=== PATIENT | male | born 1940 | race Caucasian/White ===

== ENCOUNTER 2016-10-15 13:29 | Observation (INO) | payer MEDICARE, BC ==
[~2016-10-15] VITALS: Ht 177.8 cm; Wt 97.0 kg
[2016-10-15] VITALS (7 sets, daily range): BP systolic 120–154; BP diastolic 60–66; PULSE 50–59; RESP 16–20; TEMP 98.1–98.8; O2SAT 95–100
[~2016-10-15 13:29] MED LIST: ASPI1TAB69 PO; ATOR40TA16 PO; CARV3.12 PO; CENTTAB PO; CITA40TA4 PO; CLOP75TA PO; LISI-519 PO; PRIL20TA2
[2016-10-15] MEDS ORDERED: SODIUM CHLORIDE 0.9% FLUSH 5 ML FLUSH IVF PRN (14:30)
--- NOTE | 2016-10-15 15:00 | RADRPT ---
EXAM DATE/TIME: 10/15/2016 14:41 [facility] COMPARISON: CHEST SINGLE AP, August 13, 2016, 16:45. INDICATIONS: Shortness of breath. MEDICAL HISTORY: None. SURGICAL HISTORY: Pacemaker. ENCOUNTER: Initial ACUITY: 1 day PAIN SCORE: 0/10 LOCATION: Bilateral chest FINDINGS: Pacemaker implanted in the left chest. Heart is not enlarged. Pulmonary vascularity is normal. The re is no alveolar consolidation, pleural effusion, or pneumothorax. CONCLUSION: Compensated cardiomegaly otherwise negative. Dilip Noriega MD FACR on October 15, 2016 at 14:53 Board Certified Radiologist. This report was verified electronically.
[2016-10-15 15:07] LABS: AUTOMATED NEUTROPHIL # 4.3 TH/MM3 (1.8-7.7); BASOPHIL # 0.1 TH/MM3 (0-0.2); BASOPHIL % 0.8 % (0.0-2.0); EOSINOPHIL # 0.4 TH/MM3 (0-0.4); EOSINOPHIL % 5.1 % (0.0-4.0); HEMATOCRIT 35.8 % (39.0-51.0); HEMO FLAGS DIFF FINAL; LYMPH % 28.4 % (9.0-44.0); LYMPHOCYTE # 2.2 TH/MM3 (1.0-4.8); MEAN CELL VOLUME 92.4 FL (80.0-100.0); MEAN CORPUSCULAR HGB CONC 33.5 % (32.0-36.0); MONO % 10.8 % (0.0-8.0); NEUT % 54.9 % (16.0-70.0); PLATELET COUNT 187 TH/MM3 (150-450); RED BLOOD COUNT 3.87 MIL/MM3 (4.50-5.90); RED CELL DISTRIBUTION WIDTH 13.4 % (11.6-17.2); WHITE BLOOD COUNT 7.9 TH/MM3 (4.0-11.0)
[2016-10-15 15:19] LABS: APTT (PATIENT) 24.4 SEC (24.3-30.1); PROTHROMBIN TIME - PATIENT 10.7 SEC (9.8-11.6)
[2016-10-15 15:35] LABS: ALT (GPT) 24 U/L (12-78); ANION GAP 4 MEQ/L (5-15); AST (GOT) 18 U/L (15-37); BICARBONATE 29.2 MEQ/L (21.0-32.0); BLOOD UREA NITROGEN 16 MG/DL (7-18); CHLORIDE 106 MEQ/L (98-107); GLOMERULAR FILTRATION RATE 71 ML/MIN (>89); MAGNESIUM 2.2 MG/DL (1.5-2.5); POTASSIUM 4.4 MEQ/L (3.5-5.1); SODIUM (NA) 139 MEQ/L (136-145)
[2016-10-15 15:38] LABS: ALKALINE PHOSPHATASE 52 U/L (45-117); TOTAL BILIRUBIN ADULT 0.5 MG/DL (0.2-1.0)
[2016-10-15 15:39] LABS: CREATINE KINASE 90 U/L (39-308)
--- NOTE | 2016-10-15 17:10 | PD ---
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 He had a defibrillator placed member and was cleared to return to regular activity today. He was working in the yard when he started to feel lightheaded and short of breath and he felt his defibrillator fire. Since then he has had no symptoms. He denies any chest pain or shortness of breath currently. He does not feel any palpitations or chest pain. PFSH Past Medical History Hx Anticoagulant Therapy: Yes (PLAVIX) Arthritis: Yes (L hand) Asthma: No Autoimmune Disease: No Blood Disorders: No Depression: Yes Heart Rhythm Problems: Yes (LOW EJECTION FRACTION) Cancer: No Cardiac Catheterization: Yes Cardiovascular Problems: Yes (3 CT) High Cholesterol: No Chemotherapy: No Chest Pain: Yes (NOT TODAY) Congestive Heart Failure: Yes COPD: No Cerebrovascular Accident: No Coronary Artery Disease: Yes Diabetes: No Diminished Hearing: No Endocrine: No GERD: Yes (TAKES PRILOSEC) Genitourinary: No Headaches: Yes Hiatal Hernia: No Hypertension: Yes Immune Disorder: No Kidney Stones: Yes Musculoskeletal: No Neurologic: No Psychiatric: No Reproductive: No Respiratory: No Migraines: No Myocardial Infarction: Yes (X 3) Radiation Therapy: No Renal Failure: No Seizures: No Sickle Cell Disease: No Sleep Apnea: No Thyroid Disease: No Ulcer: No Tetanus Vaccination: < 5 Years Influenza Vaccination: Yes Past Surgical History Abdominal Surgery: Yes (RIGHT INGUINAL HERNIA REPAIR ) AICD: Yes Arteriovenous Shunt: No Cardiac Surgery: Yes (DEFIBULATOR/PACERPLACED) Coronary Artery Bypass Graft: Yes Coronary Stent: Yes (3 STENTS) Ear Surgery: No Endocrine Surgery: No Eye Surgery: No Genitourinary Surgery: No Gynecologic Surgery: No Insulin Pump: No Joint Replacement: No Oral Surgery: Yes (UPPER TEETH REMOVED) Pacemaker: Yes Thoracic Surgery: No Other Surgery: Yes (hernia) Social History Alcohol Use: No Tobacco Use: No (QUIT 40 YEARS AGO) Substance Use: No Allergies-Medications (Allergen,Severity, Reaction): Coded Allergies: Sulfa (Verified Allergy, Severe, Hives, 04/20/14) Reported Meds & Prescriptions Reported Meds & Active Scripts Active Reported B-12 (Cyanocobalamin) 1,000 Mcg Cap 1,000 Mcg PO DAILY Prilosec (Omeprazole Magnesium) 20 Mg Tab Lisinopril 5 Mg Tab 5 Mg PO DAILY Clopidogrel (Clopidogrel Bisulfate) 75 Mg Tab 75 Mg PO DAILY Citalopram (Citalopram Hydrobromide) 40 Mg Tab 40 Mg PO DAILY Centrum Silver (Multiple Vitamins W/ Minerals) 1 Tab 1 Tab PO DAILY Carvedilol 3.125 Mg Tab 3.125 Mg PO BID Atorvastatin (Atorvastatin Calcium) 40 Mg Tab 40 Mg PO HS Aspirin 81 Mg Tabdr 81 Mg PO DAILY Review of Systems Except as stated in HPI: all other systems reviewed are Neg General / Constitutional: No: Fever, Chills Eyes: No: Blurred Vision HENT: Positive: Lightheadedness, No: Headaches Cardiovascular: No: Chest Pain or Discomfort Respiratory: Positive: Shortness of Breath Gastrointestinal: No: Nausea, Vomiting Musculoskeletal: No: Edema, Pain Skin: No Rash, No Change in Pigmentation Neurologic: No: Weakness Physical Exam Narrative GENERAL: Awake and alert in no acute distress. SKIN: Warm and dry. HEAD: Atraumatic. Normocephalic. EYES: Pupils equal and round. No scleral icterus. ENT: Mucous membranes pink and moist. NECK: Trachea midline. No JVD. CARDIOVASCULAR: Regular rate and rhythm. No murmur appreciated. RESPIRATORY: No accessory muscle use. Clear to auscultation. Breath sounds equal bilaterally. GASTROINTESTINAL: Abdomen soft, non-tender, nondistended. MUSCULOSKELETAL: No obvious deformities. No clubbing. No cyanosis. No edema. NEUROLOGICAL: Awake and alert. No obvious cranial nerve deficits. Motor grossly within normal limits. Normal speech. PSYCHIATRIC: Appropriate mood and affect; insight and judgment normal. Data Data Last Documented VS Vital Signs Date Time Temp Pulse Resp B/P Pulse Ox O2 Delivery O2 Flow Rate FiO2 10/15/16 16:05 59 18 129/60 99 Room Air 10/15/16 13:32 98.1 Orders Electrocardiogram (10/15/16 ) Ckmb (Isoenzyme) Profile (10/15/16 14:17) Complete Blood Count With Diff (10/15/16 14:17) Comprehensive Metabolic Panel (10/15/16 14:17) Magnesium (Mg) (10/15/16 14:17) Prothrombin Time / Inr (Pt) (10/15/16 14:17) Act Partial Throm Time (Ptt) (10/15/16 14:17) Troponin I (10/15/16 14:17) Chest, Single Ap (10/15/16 14:17) Ecg Monitoring (10/15/16 14:17) Bilateral Bp Monitoring (10/15/16 14:17) Iv Access Insert/Monitor (10/15/16 14:17) Oximetry (10/15/16 14:17) Oxygen Administration (10/15/16 14:17) Sodium Chloride 0.9% Flush (Ns Flush) (10/15/16 14:30) Admit Order (Ed Use Only) (10/15/16 ) Labs Laboratory Tests Test 10/15/16 14:35 White Blood Count 7.9 TH/MM3 Red Blood Count 3.87 MIL/MM3 Hemoglobin 12.0 GM/DL Hematocrit 35.8 % Mean Corpuscular Volume 92.4 FL Mean Corpuscular Hemoglobin 31.0 PG Mean Corpuscular Hemoglobin 33.5 % Concent Red Cell Distribution Width 13.4 % Platelet Count 187 TH/MM3 Mean Platelet Volume 9.6 FL Neutrophils (%) (Auto) 54.9 % Lymphocytes (%) (Auto) 28.4 % Monocytes (%) (Auto) 10.8 % Eosinophils (%) (Auto) 5.1 % Basophils (%) (Auto) 0.8 % Neutrophils # (Auto) 4.3 TH/MM3 Lymphocytes # (Auto) 2.2 TH/MM3 Monocytes # (Auto) 0.8 TH/MM3 Eosinophils # (Auto) 0.4 TH/MM3 Basophils # (Auto) 0.1 TH/MM3 CBC Comment DIFF FINAL Differential Comment Prothrombin Time 10.7 SEC Prothromb Time International 1.0 RATIO Ratio Activated Partial 24.4 SEC Thromboplast Time Sodium Level 139 MEQ/L Potassium Level 4.4 MEQ/L Chloride Level 106 MEQ/L Carbon Dioxide Level 29.2 MEQ/L Anion Gap 4 MEQ/L Blood Urea Nitrogen 16 MG/DL Creatinine 1.01 MG/DL Estimat Glomerular Filtration 71 ML/MIN Rate Random Glucose 78 MG/DL Calcium Level 8.4 MG/DL Magnesium Level 2.2 MG/DL Total Bilirubin 0.5 MG/DL Aspartate Amino Transf 18 U/L (AST/SGOT) Alanine Aminotransferase 24 U/L (ALT/SGPT) Alkaline Phosphatase 52 U/L Total Creatine Kinase 90 U/L Troponin I LESS THAN 0.02 NG/ML Total Protein 6.8 GM/DL Albumin 3.5 GM/DL MDM Medical Decision Making Medical Screen Exam Complete: Yes Emergency Medical Condition: Yes Medical Record Reviewed: Yes Interpretation(s) ECG shows sinus bradycardia at 50. No ST elevation or depression. Unchanged from his previous ECG. Differential Diagnosis ACS versus dysrhythmia versus electrolyte abnormality Narrative Course Patient is a 76-year-old male who comes in after his defibrillator fired today. Exam shows no acute abnormalities. IV established, patient connected to the college service officer. Labs sent show no acute abnormalities. [employer] contacted to come and interrogate his device. Dr. Cevallos, covering for Dr. Rahman, consulted. Patiently placed in observation for further management. Diagnosis Primary Impression: AICD discharge Admitting Information Admitting Physician Requests: Observation Condition: Stable Sindy Rodriguez MD Oct 15, 2016 17:10
[2016-10-15] MEDS ORDERED: SODIUM CHLOR 0.45% 1000 ML INJ 1,000 ML IV SCH (17:18)
--- NOTE | 2016-10-15 17:24 | HP.UPD ---
H&P Update Note This is a very pleasant 76-year-old male who had a defibrillator inserted in July 2016. He went out pushing mulch in his wheelbarrow today. He had trouble breathing and felt his defibrillator going off. He came into the emergency department at [facility] when he was seen by the undersigned in room C25. He is alert and oriented. He was seen in the presence of his . He is being placed on observation overnight. The device is being interrogated. The case was discussed with his network support specialist Dr. Cevallos at the bedside. Full history and physical to follow. Angel Monet MD Oct 15, 2016 17:22
[2016-10-15] MEDS ORDERED: NALOXONE HCL 0.4 MG/ML AMP IV PRN (17:30)
[2016-10-15] MEDS ORDERED: ONDANSETRON HCL 4 MG/2 ML VIAL IVP PRN (17:30)
[2016-10-15] MEDS ORDERED: SODIUM CHLORIDE 0.9% FLUSH 5 ML FLUSH FLUSH PRN (17:30)
--- NOTE | 2016-10-15 17:51 | MB ---
cc: SYDNEY LABOY MD DATE OF CONSULTATION 10/12/16 REASON FOR CONSULTATION ICD discharge. HISTORY OF PRESENT ILLNESS Mr. Ramírez is a 76-year-old man who does have a history of myocardial infarction. He has had recurrent anterior ST-elevation myocardial infarctions with occlusion of the proximal and LAD that was stented in 2013. At that time, he had moderate disease of the RCA and an EF of 30%. He did subsequently undergo ICD implantation in July of 2016. The patient reports he had defibrillator discharge in August. He has done well since that time. Today he was out pushing a wheelbarrow with some mulch and felt a little dizzy and then had the ICD discharge on him again today. He subsequently came to the emergency room. He is currently chest pain free and no longer dizzy. PAST MEDICAL HISTORY 1. Congestive heart failure 2. Coronary artery disease 3. Myocardial infarction 4. Ischemic cardiomyopathy, 5. [employer] ICD, 6. Right inguinal hernia repair ALLERGIES [facility] FAMILY HISTORY Negative for CAD. REVIEW OF SYSTEMS Except as mentioned in the HPI, all 12 systems are negative. MEDICATIONS Outpatient - The patient is not sure of the dosing but is on 1. Aspirin. 2. Atorvastatin, 3. Carvedilol his is going to call back later with the up to date med list. PHYSICAL EXAMINATION VITAL SIGNS: 57, 18, 154/64. GENERAL: He is a well-appearing man who is in no apparent distress. NECK: Free from JVD. LUNGS: Bilaterally clear to auscultation. CARDIOVASCULAR: Normal S1 and S2. I did not appreciate any murmurs, rubs or gallops. ABDOMEN: Soft. EXTREMITIES: Free from edema. CARDIOLOGY STUDIES EKG shows normal sinus rhythm. LABORATORY FINDINGS Significant for hemoglobin of 12, troponin with 0.02. IMPRESSION 1. ICD discharge - The patient is doing quite well. His dizziness prior to the shock is concerning for DVT. I would like to get the defibrillator interrogated to verify this. If he does have a tachyarrhythmia, I would increase his carvedilol. Follow up troponin is also reasonable. 2. Ischemic cardiomyopathy - Ideally, we will continue the patient on the Coreg and lisinopril. 3. History of CAD and LAD stent - again, we will follow serial troponins. Keep the patient in observation. If he remains stable, we will consider discharge in a.m. Nhan Tsai /5:14 PM /5:37 PM
--- NOTE | 2016-10-15 18:01 | HHI.HP ---
HPI Service [facility] Primary Care Physician Thomas Key M.D. Admission Diagnosis Arrhythmia, defibrilator fired Diagnoses: Chief Complaint: AICD firing Travel History International Travel<30 Days: No Contact w/Intl Traveler <30 Da: No Traveled to Known Affected Are: No History of Present Illness This is a pleasant 76-year-old male with history of cardiomyopathy with recent defibrillator placement July 2016. Patient was readmitted August 13, 2016 with an AICD shock, he was evaluated and was found with lead malfunction.he had lead revision on 08/13/2016. Patient also with history of CAD, CHF, 3 prior MIs , 5 stents. Patient presented to the emergency room with complaint of AICD firing. Patient indicates that he was told that he could resume normal activities. 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 He went out pushing mulch with a wheelbarrow and as he went to bend over he felt defibrillator going off. He did have some shortness of breath. Denies any chest pain, no palpitations. He presented to the emergency room for further evaluation. Patient is examined in the emergency room, his device is being interrogated. He has been evaluated by Dr. Cevallos and Coreg has been increased. Patient will be monitored overnight. At this time he is comfortable , hemodynamically stable. Patient is admitted for further evaluation and treatment. Review of Systems Constitutional: DENIES: Diaphoretic episodes, Fatigue, Fever, Weight gain, Weight loss, Chills, Dizziness, Change in appetite, Night Sweats Endocrine: DENIES: Heat/cold intolerance, Polydipsia, Polyuria, Polyphagia Eyes: DENIES: Blurred vision, Diplopia, Eye inflammation, Eye pain, Vision loss , Photosensitivity, Double Vision Ears, nose, mouth, throat: DENIES: Tinnitus, Hearing loss, Vertigo, Nasal discharge, Oral lesions, Throat pain, Hoarseness, Ear Pain, Running Nose, Epistaxis, Sinus Pain, Toothache, Odynophagia Respiratory: DENIES: Apneas, Cough, Snoring, Wheezing, Hemoptysis, Sputum production, Shortness of breath Cardiovascular: COMPLAINS OF: Chest pain, DENIES: Palpitations, Syncope, Dyspnea on Exertion, PND, Lower Extremity Edema, Orthopnea, Claudication Gastrointestinal: DENIES: Abdominal pain, Black stools, Bloody stools, Constipation, Diarrhea, Nausea, Vomiting, Difficulty Swallowing, Anorexia Genitourinary: DENIES: Sexual dysfunction, Urinary frequency, Urinary incontinence, Urgency, Hematuria, Dysuria, Nocturia, Penile Discharge, Testicular Pain, Testicular Swelling Musculoskeletal: DENIES: Joint pain, Muscle aches, Stiffness, Joint Swelling, Back pain, Neck pain Integumentary: DENIES: Abnormal pigmentation, Nail changes, Pruritus, Rash Hematologic/lymphatic: DENIES: Bruising, Lymphadenopathy Immunologic/allergic: DENIES: Eczema, Urticaria Neurologic: DENIES: Abnormal gait, Headache, Localized weakness, Paresthesias, Seizures, Speech Problems, Tremor, Poor Balance Psychiatric: DENIES: Anxiety, Confusion, Mood changes, Depression, Hallucinations, Agitation, Suicidal Ideation, Homicidal Ideation, Delusions Past Family Social History Past Medical History CHF CAD Prior NH, last 3 years ago Cardiomyopathy Past Surgical History Stent 5 AICD July 2016 Right inguinal hernia repair 30 years ago Lead revision 08/13/2016 Reported Medications Reported Meds & Active Scripts Active Reported Prilosec (Omeprazole Magnesium) 20 Mg Tab Lisinopril 5 Mg Tab 5 Mg PO DAILY Clopidogrel (Clopidogrel Bisulfate) 75 Mg Tab 75 Mg PO DAILY Citalopram (Citalopram Hydrobromide) 40 Mg Tab 40 Mg PO DAILY Centrum Silver (Multiple Vitamins W/ Minerals) 1 Tab 1 Tab PO DAILY Carvedilol 3.125 Mg Tab 3.125 Mg PO BID Atorvastatin (Atorvastatin Calcium) 40 Mg Tab 40 Mg PO HS Aspirin 81 Mg Tabdr 81 Mg PO DAILY Allergies: Coded Allergies: Sulfa (Verified Allergy, Severe, Hives, 04/20/14) Active Ordered Medications Inpatient Medications Aspirin (Ecotrin Ec) 81 mg DAILY PO ; Start 10/16/16 at 09:00 Atorvastatin Calcium (Lipitor) 40 mg HS PO ; Start 10/15/16 at 21:00 Carvedilol (Coreg) 6.25 mg BID PO ; Start 10/15/16 at 21:00 Citalopram Hydrobromide (CeleXA) 40 mg DAILY PO ; Start 10/16/16 at 09:00 Clopidogrel Bisulfate (Plavix) 75 mg DAILY PO ; Start 10/16/16 at 09:00 Heparin Sodium (Porcine) (Heparin Inj) 5,000 units Q12H SQ ; Start 10/15/16 at 18 :00 IV Flush (NS Flush) 2 ml BID FLUSH ; Start 10/15/16 at 21:00 Lisinopril (Prinivil) 5 mg DAILY PO ; Start 10/16/16 at 09:00 Multivitamin Hematinic Therapeutic 1 tab 1 tab DAILY PO ; Start 10/16/16 at 09:00 Naloxone HCl (Narcan Inj) 0.4 mg UNSCH PRN IV SEE LABEL COMMENTS; Start at 17:30 Ondansetron HCl (Zofran Inj) 4 mg Q6H PRN IVP NAUSEA OR VOMITING; Start at 17:30 Sodium Chloride (09/13 NS 1000 ml Inj) 1,000 ml @ 75 mls/hr [id number] IV ; Start at 17:18 Family History Father: Prostate cancer Brother: Pancreatic cancer Mother: of normal causes Social History 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 SKIN: No rashes, ecchymoses or lesions. Cool and dry. HEAD: Atraumatic. Normocephalic. No temporal or scalp tenderness. EYES: Pupils equal round and reactive. Extraocular motions intact. No scleral icterus. No injection or drainage. ENT: Nose without bleeding, purulent drainage or septal hematoma. Throat without erythema, tonsillar hypertrophy or exudate. Uvula midline. Airway patent. NECK: Trachea midline. No JVD or lymphadenopathy. Supple, nontender, no meningeal signs. CARDIOVASCULAR: Regular rate and rhythm without murmurs, gallops, or rubs. AICD noted over left chest wall. RESPIRATORY: Clear to auscultation. Breath sounds equal bilaterally. No wheezes , rales, or rhonchi. GASTROINTESTINAL: Abdomen soft, non-tender, nondistended. No hepato-splenomegaly , or palpable masses. No guarding. MUSCULOSKELETAL: Extremities without clubbing, cyanosis. Bilateral trace ankle edema, pedal pulses +1. No joint tenderness, effusion, or edema noted. No calf tenderness. Negative Homans sign bilaterally. NEUROLOGICAL: Awake and alert. Cranial nerves II through XII intact. Motor and sensory grossly within normal limits. Five out of 5 muscle strength in all muscle groups. Normal speech. Laboratory Laboratory Tests Test 10/15/16 14:35 White Blood Count 7.9 Red Blood Count 3.87 Hemoglobin 12.0 Hematocrit 35.8 Mean Corpuscular Volume 92.4 Mean Corpuscular Hemoglobin 31.0 Mean Corpuscular Hemoglobin 33.5 Concent Red Cell Distribution Width 13.4 Platelet Count 187 Mean Platelet Volume 9.6 Neutrophils (%) (Auto) 54.9 Lymphocytes (%) (Auto) 28.4 Monocytes (%) (Auto) 10.8 Eosinophils (%) (Auto) 5.1 Basophils (%) (Auto) 0.8 Neutrophils # (Auto) 4.3 Lymphocytes # (Auto) 2.2 Monocytes # (Auto) 0.8 Eosinophils # (Auto) 0.4 Basophils # (Auto) 0.1 CBC Comment DIFF FINAL Differential Comment Prothrombin Time 10.7 Prothromb Time International 1.0 Ratio Activated Partial 24.4 Thromboplast Time Sodium Level 139 Potassium Level 4.4 Chloride Level 106 Carbon Dioxide Level 29.2 Anion Gap 4 Blood Urea Nitrogen 16 Creatinine 1.01 Estimat Glomerular Filtration 71 Rate Random Glucose 78 Calcium Level 8.4 Magnesium Level 2.2 Total Bilirubin 0.5 Aspartate Amino Transf 18 (AST/SGOT) Alanine Aminotransferase 24 (ALT/SGPT) Alkaline Phosphatase 52 Total Creatine Kinase 90 Troponin I LESS THAN 0.02 Total Protein 6.8 Albumin 3.5 Result Diagram: 10/15/16 1435 10/15/16 1435 Imaging Last Impressions Chest X-Ray 10/15/16 1417 Signed Impressions: Service Date/Time: Saturday, October 15, 2016 14:41 - CONCLUSION: Compensated cardiomegaly otherwise negative. Dilip Noriega MD FACR Assessment and Plan Problem List: (1) AICD discharge (2) Cardiomyopathy (3) Hyperlipidemia (4) Hypertension (5) GERD (gastroesophageal reflux disease) (6) HLD (hyperlipidemia) (7) CAD (coronary artery disease) Assessment and Plan Admit to Dr. Monet 76 year old male with PMHx of CAD, cardiomyopathy, AICD. Presented to ED with c/ o AICD firing x 1 while he was doing yard work. -Cardiology consulted, Dr. Cevallos has evaluated. Increased Coreg -Device is being interrogated -Continuous telemetry -Continue home meds HTN, stable -continue home meds Hyperlipidemia -Continue home medications Heparin for DVT prophylax Plan of care has been discussed with the patient, attending and registered nurse. Further management of the patient will be dependent on the hospital course Discussed with the patient did need to pace activities, he may need to refrain from excessive physical activity. If patient remains stable and cleared by cardiology, possible discharge in the morning Patient has been seen by myself and Dr. Monet, this H&P is written on his behalf Problem Qualifiers (1) Cardiomyopathy: Qualified Code: I42.9 - Cardiomyopathy, unspecified type (2) Hyperlipidemia: Qualified Code: E78.5 - Hyperlipidemia, unspecified hyperlipidemia type (3) Hypertension: Qualified Code: I10 - Essential hypertension (4) GERD (gastroesophageal reflux disease): Qualified Code: K21.9 - Gastroesophageal reflux disease, esophagitis presence not specified (5) HLD (hyperlipidemia): Qualified Code: E78.5 - Hyperlipidemia, unspecified hyperlipidemia type (6) CAD (coronary artery disease): Qualified Code: I25.10 - Coronary artery disease involving [place] coronary artery of [place] heart without angina pectoris Estephania Morrison Oct 15, 2016 18:01
[2016-10-15] MEDS: HEPARIN SODIUM - SQ 10,000 UNITS/ML VIAL SQ SCH (18:44)
[2016-10-15] MEDS ORDERED: CYAN100017 PO (18:54)
[2016-10-15] MEDS: SODIUM CHLORIDE 0.9% FLUSH 5 ML FLUSH FLUSH SCH (20:46)
[2016-10-15] MEDS: CARVEDILOL 6.25 MG TAB PO SCH (20:47)
[2016-10-15] MEDS ORDERED: ATORVASTATIN 40 MG TAB PO SCH (21:00)
[2016-10-15] MEDS ORDERED: CARVEDILOL 3.125 MG TAB PO SCH (21:00)
[2016-10-16 00:04] VITALS: BP 115/60; PULSE 52; RESP 20; TEMP 98.1; O2SAT 95
[2016-10-16 03:29] LABS: AUTOMATED NEUTROPHIL # 3.5 TH/MM3 (1.8-7.7); BASOPHIL # 0.1 TH/MM3 (0-0.2); BASOPHIL % 0.9 % (0.0-2.0); EOSINOPHIL # 0.4 TH/MM3 (0-0.4); EOSINOPHIL % 5.9 % (0.0-4.0); HEMATOCRIT 35.5 % (39.0-51.0); HEMO FLAGS DIFF FINAL; LYMPH % 32.3 % (9.0-44.0); LYMPHOCYTE # 2.2 TH/MM3 (1.0-4.8); MEAN CELL VOLUME 92.8 FL (80.0-100.0); MEAN CORPUSCULAR HEMOGLOBIN 31.3 PG (27.0-34.0); MEAN CORPUSCULAR HGB CONC 33.8 % (32.0-36.0); MONO % 10.1 % (0.0-8.0); NEUT % 50.8 % (16.0-70.0); PLATELET COUNT 183 TH/MM3 (150-450); RED BLOOD COUNT 3.83 MIL/MM3 (4.50-5.90); RED CELL DISTRIBUTION WIDTH 13.4 % (11.6-17.2); WHITE BLOOD COUNT 6.9 TH/MM3 (4.0-11.0)
[2016-10-16 03:50] LABS: BICARBONATE 29.9 MEQ/L (21.0-32.0); POTASSIUM 3.7 MEQ/L (3.5-5.1)
[2016-10-16 04:05] VITALS: BP 115/59; PULSE 52; RESP 20; TEMP 97.6; O2SAT 96
[2016-10-16] MEDS: HEPARIN SODIUM - SQ 10,000 UNITS/ML VIAL SQ SCH (05:36)
[2016-10-16 08:13] VITALS: BP 131/63; PULSE 55; RESP 20; TEMP 98; O2SAT 97
--- NOTE | 2016-10-16 08:28 | HHI.PR ---
Subjective Remarks No chest pain No shortness of breath No nausea no vomiting Appetite good No headache (Shyanne Gerard) Objective Objective Results - Vital Signs Date Time Temp Pulse Resp B/P Pulse Ox O2 Delivery O2 Flow Rate FiO2 10/16/16 08:13 98.0 55 20 131/63 97 10/16/16 04:05 97.6 52 20 115/59 96 10/16/16 00:04 98.1 52 20 115/60 95 10/15/16 23:28 50 10/15/16 20:00 98.8 54 16 120/66 95 10/15/16 17:20 57 18 154/64 97 Nasal Cannula 2 138/64 10/15/16 16:05 59 18 129/60 99 Room Air 10/15/16 14:41 100 Room Air 10/15/16 14:41 100 Room Air 10/15/16 14:00 53 20 98 Room Air 10/15/16 13:56 54 18 131/64 98 10/15/16 13:32 98.1 56 20 137/65 95 Room Air I/O 10/15/16 10/15/16 10/15/16 10/16/16 10/16/16 10/16/16 07:00 15:00 23:00 07:00 15:00 23:00 Intake Total 480 ml Balance 480 ml Intake Oral 480 ml # Voids 2 2 # Bowel Movements 1 (Shyanne Gerard) Result Diagram: 10/16/16 0305 10/16/16 0305 ROS General: Other (10 point ROS done positives noted bradycardia. Other systems negative or unremarkable) Cardiac: Other (bradycardia) (Shyanne Gerard) Physical Exam Physical Exam Physical Exam GENERAL: This is a well-nourished, well-developed patient, in no apparent distress. SKIN: No rashes, ecchymoses or lesions. Cool and dry. HEAD: Atraumatic. Normocephalic. No temporal or scalp tenderness. EYES: Pupils 2mm,equal round and reactive. Extraocular motions intact. No scleral icterus. No injection or drainage. ENT: Nose without bleeding, purulent drainage or septal hematoma. Throat without erythema, tonsillar hypertrophy or exudate. Uvula midline. Airway patent. NECK: Trachea midline. No JVD or lymphadenopathy. Supple, nontender, no meningeal signs. CARDIOVASCULAR: Regular rate and rhythm without murmurs, gallops, or rubs. AICD noted over left chest wall. RESPIRATORY: Clear to auscultation. Breath sounds equal bilaterally. No wheezes , rales, or rhonchi. GASTROINTESTINAL: Abdomen soft, non-tender, nondistended. No hepato-splenomegaly , or palpable masses. No guarding. MUSCULOSKELETAL: Extremities without clubbing, cyanosis. No pedal edema. Pulses 2+ over 4+ intact. No joint tenderness, effusion, or edema noted. No calf tenderness. NEUROLOGICAL: Awake and alert X 4. Cranial nerves II through XII intact. Motor and sensory grossly within normal limits. Five out of 5 muscle strength in all muscle groups. Normal speech. 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 Objective Remarks I rested well last night. I'm currently having no pain. (Shyanne Gerard) A/P Assessment and Plan Assessment and Plan Assessment and Plan Problem List: (1) AICD discharge (2) Cardiomyopathy (3) Hyperlipidemia (4) Hypertension (5) GERD (gastroesophageal reflux disease) (6) HLD (hyperlipidemia) (7) CAD (coronary artery disease) 8. Anemia 76 year old male with PMHx of CAD, cardiomyopathy, AICD. Presented to ED with c/ o AICD firing x 1 while he was doing yard work, pushing a wheelbarrow -Cardiology consulted, Dr. Cevallos has evaluated. Increased Coreg -Device is being interrogated -Continuous telemetry -Continue home meds HTN, stable -continue home meds Hyperlipidemia -Continue home medications Anemia mild, asymptomatic, monitor Heparin for DVT prophylax If patient remains stable and cleared by cardiology, possible discharge in the morning. We will evaluate. Patient has been seen by myself and Dr. Monet. Discharge Planning Home, initiated discharge planning. Discussed With: Nurse, Family (patient), Other (Shyanne Gerard) Assessment and Plan seen, examined by myself, Dr Monet, today 10/16/16 Discussed with patient Discussed with nurse Cleared for discharge by cardiology Discharge home today Follow up with cardiology as outpatient The exam, history, and the medical decision-making described in the above note were completed with the assistance of the mid-level provider. I reviewed the findings presented. I attest that I had a [id number] encounter with the patient on the same day, and personally performed and documented my assessment and findings in the medical record. signed (Angel Monet MD) Shyanne Gerard Oct 16, 2016 08:28 Angel Monet MD Oct 16, 2016 11:36 Shyanne Gerard Oct 16, 2016 08:28
[2016-10-16] MEDS ORDERED: ASPIRIN EC 81 MG TABEC PO SCH (09:00)
[2016-10-16] MEDS ORDERED: LISINOPRIL 5 MG TAB PO SCH (09:00)
[2016-10-16] MEDS ORDERED: CLOPIDOGREL 75 MG TAB PO SCH (09:00)
[2016-10-16] MEDS: CARVEDILOL 6.25 MG TAB PO SCH (09:00)
[2016-10-16] MEDS ORDERED: MULTIVITAMIN HEMATINIC THERAPEUTIC TAB PO SCH (09:00)
[2016-10-16] MEDS ORDERED: CITALOPRAM HYDROBROMIDE 40 MG TAB PO SCH (09:00)
[2016-10-16] MEDS: SODIUM CHLORIDE 0.9% FLUSH 5 ML FLUSH FLUSH SCH (09:46)
--- NOTE | 2016-10-16 10:09 | PD.CARD.PN ---
Subjective Subjective Remarks Pt without complaints Objective Medications Current Medications Medications (Trade) Dose Ordered Sig/Mack Route Start Time Stop Time Status Last Admin (Ecotrin Ec) 81 mg DAILY PO 10/16/16 09:00 10/16/16 09:45 (Lipitor) 40 mg HS PO 10/15/16 21:00 10/15/16 20:46 (CeleXA) 40 mg DAILY PO 10/16/16 09:00 10/16/16 09:46 (Plavix) 75 mg DAILY PO 10/16/16 09:00 10/16/16 09:45 (Prinivil) 5 mg DAILY PO 10/16/16 09:00 10/16/16 09:46 (Theragran Hematinic) 1 tab DAILY PO 10/16/16 09:00 10/16/16 09:45 (NS Flush) 2 ml UNSCH PRN FLUSH 10/15/16 17:30 (NS Flush) 2 ml BID FLUSH 10/15/16 21:00 10/16/16 09:46 (Zofran Inj) 4 mg Q6H PRN IVP 10/15/16 17:30 (Heparin Inj) 5,000 units Q12H SQ 10/15/16 18:00 10/16/16 05:36 (Narcan Inj) 0.4 mg UNSCH PRN IV 10/15/16 17:30 (Coreg) 6.25 mg BID PO 10/15/16 21:00 Vital Signs / I&O Vital Signs Date Time Temp Pulse Resp B/P Pulse Ox O2 Delivery O2 Flow Rate FiO2 10/16/16 08:13 98.0 55 20 131/63 97 10/16/16 04:05 97.6 52 20 115/59 96 10/16/16 00:04 98.1 52 20 115/60 95 10/15/16 23:28 50 10/15/16 20:00 98.8 54 16 120/66 95 10/15/16 17:20 57 18 154/64 97 Nasal Cannula 2 138/64 10/15/16 16:05 59 18 129/60 99 Room Air 10/15/16 14:41 100 Room Air 10/15/16 14:41 100 Room Air 10/15/16 14:00 53 20 98 Room Air 10/15/16 13:56 54 18 131/64 98 10/15/16 13:32 98.1 56 20 137/65 95 Room Air I/O 10/15/16 10/15/16 10/15/16 10/16/16 10/16/16 10/16/16 07:00 15:00 23:00 07:00 15:00 23:00 Intake Total 480 ml Balance 480 ml Intake Oral 480 ml # Voids 2 2 # Bowel Movements 1 Physical Exam GENERAL: Well developed, well nourished. No acute distress. HEENT: Jugular venous pressure is normal. CHEST: Lungs clear to auscultation bilaterally. Unlabored respiratory effort. CARDIAC: Regular rate and rhythm without S3, S4, or murmur. ABDOMEN: Soft, nontender, no hepatosplenomegaly. Bowel sounds present. EXTREMITIES: No clubbing, cyanosis, or edema. Laboratory Laboratory Tests Test 10/15/16 10/15/16 10/16/16 14:35 21:08 03:05 White Blood Count 7.9 TH/MM3 6.9 TH/MM3 Red Blood Count 3.87 MIL/MM3 3.83 MIL/MM3 Hemoglobin 12.0 GM/DL 12.0 GM/DL Hematocrit 35.8 % 35.5 % Mean Corpuscular Volume 92.4 FL 92.8 FL Mean Corpuscular Hemoglobin 31.0 PG 31.3 PG Mean Corpuscular Hemoglobin 33.5 % 33.8 % Concent Red Cell Distribution Width 13.4 % 13.4 % Platelet Count 187 TH/MM3 183 TH/MM3 Mean Platelet Volume 9.6 FL 9.3 FL Neutrophils (%) (Auto) 54.9 % 50.8 % Lymphocytes (%) (Auto) 28.4 % 32.3 % Monocytes (%) (Auto) 10.8 % 10.1 % Eosinophils (%) (Auto) 5.1 % 5.9 % Basophils (%) (Auto) 0.8 % 0.9 % Neutrophils # (Auto) 4.3 TH/MM3 3.5 TH/MM3 Lymphocytes # (Auto) 2.2 TH/MM3 2.2 TH/MM3 Monocytes # (Auto) 0.8 TH/MM3 0.7 TH/MM3 Eosinophils # (Auto) 0.4 TH/MM3 0.4 TH/MM3 Basophils # (Auto) 0.1 TH/MM3 0.1 TH/MM3 CBC Comment DIFF FINAL DIFF FINAL Differential Comment Prothrombin Time 10.7 SEC Prothromb Time International 1.0 RATIO Ratio Activated Partial 24.4 SEC Thromboplast Time Sodium Level 139 MEQ/L 142 MEQ/L Potassium Level 4.4 MEQ/L 3.7 MEQ/L Chloride Level 106 MEQ/L 106 MEQ/L Carbon Dioxide Level 29.2 MEQ/L 29.9 MEQ/L Anion Gap 4 MEQ/L 6 MEQ/L Blood Urea Nitrogen 16 MG/DL 16 MG/DL Creatinine 1.01 MG/DL 0.98 MG/DL Estimat Glomerular Filtration 71 ML/MIN 74 ML/MIN Rate Random Glucose 78 MG/DL 94 MG/DL Calcium Level 8.4 MG/DL 8.5 MG/DL Magnesium Level 2.2 MG/DL Total Bilirubin 0.5 MG/DL Aspartate Amino Transf 18 U/L (AST/SGOT) Alanine Aminotransferase 24 U/L (ALT/SGPT) Alkaline Phosphatase 52 U/L Total Creatine Kinase 90 U/L 80 U/L 79 U/L Troponin I LESS THAN 0.02 0.02 NG/ML 0.02 NG/ML NG/ML Total Protein 6.8 GM/DL Albumin 3.5 GM/DL Imaging Last 72 hours Impressions Chest X-Ray 10/15/16 1417 Signed Impressions: Service Date/Time: Saturday, October 15, 2016 14:41 - CONCLUSION: Compensated cardiomegaly otherwise negative. Dilip Noriega MD FACR Assessment and Plan Assessment and Plan ICD shock- device showed ATP then shock -asymptomatic and enzymes negative -coreg increased -ok for d/c and follow up with Mona Belcher MD Oct 16, 2016 10:09
[2016-10-16] MEDS ORDERED: CARV6.25 PO (11:51)
--- NOTE | 2016-10-17 12:54 | EKG ---
Date Performed: 10/15/2016 Time Performed: 14:13:26 PTAGE: 76 years EKG: SINUS BRADYCARDIA WITH SINUS ARRHYTHMIA ANTEROSEPTAL MYOCARDIAL INFARCTION ACUTE CO S jodi PREVIOUS TRACING , no significant change noted PREVIOUS TRACIN08/12/2016 09.50 DOCTOR: Mitchel Quevedo Interpretating Date/Time 10/17/2016 12:53:32
== END 2016-10-16 12:32 | disposition home or self-care (01) ==
LOC: NEPC 13:29 → NEDA 17:11 → NEPGCP 17:52
PROVIDERS: ADMIT Specialist; ATTEND Specialist
DX: T82.897A Other specified complication of cardiac prosthetic devices, implants and grafts, initial encounter (principal); R57.9 Shock, unspecified; I25.5 Ischemic cardiomyopathy; I50.9 Heart failure, unspecified; I25.10 Atherosclerotic heart disease of native coronary artery without angina pectoris; I10 Essential (primary) hypertension; E78.5 Hyperlipidemia, unspecified; D64.9 Anemia, unspecified; I25.2 Old myocardial infarction; K21.0 Gastro-esophageal reflux disease with esophagitis; Z79.899 Other long term (current) drug therapy; Z87.442 Personal history of urinary calculi
CPT/HCPCS: 71010; 80048; 80053; 82550; 83735; 84484; 85025; 85610; 85730; 93005; 99285; G0378; J1644

== ENCOUNTER 2016-10-27 05:05 | Day surgery (SDC) | payer MEDICARE, BC ==
[~2016-10-27] VITALS: Ht 177.8 cm; Wt 97.6 kg
[~2016-10-27 05:05] MED LIST changes: -CARV3.12 PO; +CARV6.25 PO; +CYAN100017 PO
[2016-10-27] MEDS ORDERED: NS 1000P @30 MLS/HR (KVO) IV SCH (06:00)
[2016-10-27 06:21] VITALS: BP 128/65; PULSE 53; RESP 18; TEMP 98.2; O2SAT 96
[2016-10-27 06:39] LABS: BASOPHIL # 0.1 TH/MM3 (0-0.2); BASOPHIL % 1.1 % (0.0-2.0); EOSINOPHIL # 0.4 TH/MM3 (0-0.4); EOSINOPHIL % 6.2 % (0.0-4.0); HEMATOCRIT 34.9 % (39.0-51.0); HEMO FLAGS DIFF FINAL; LYMPH % 26.7 % (9.0-44.0); LYMPHOCYTE # 1.9 TH/MM3 (1.0-4.8); MEAN CELL VOLUME 91.3 FL (80.0-100.0); MEAN CORPUSCULAR HEMOGLOBIN 31.6 PG (27.0-34.0); MEAN CORPUSCULAR HGB CONC 34.6 % (32.0-36.0); MONO % 9.9 % (0.0-8.0); NEUT % 56.1 % (16.0-70.0); PLATELET COUNT 183 TH/MM3 (150-450); RED BLOOD COUNT 3.83 MIL/MM3 (4.50-5.90); WHITE BLOOD COUNT 7.2 TH/MM3 (4.0-11.0)
[2016-10-27 07:03] LABS: APTT (PATIENT) 23.5 SEC (24.3-30.1); PROTHROMBIN TIME - PATIENT 10.8 SEC (9.8-11.6)
[2016-10-27] MEDS ORDERED: HEPARIN-NS/PF INJ 500 ML ONE (07:11)
[2016-10-27 07:14] LABS: BICARBONATE 27.6 MEQ/L (21.0-32.0)
[2016-10-27 07:15] LABS: POTASSIUM 4.5 MEQ/L (3.5-5.1)
[2016-10-27] MEDS ORDERED: MIDAZOLAM HCL 2 MG/2 ML VIAL ONE (07:25)
[2016-10-27] MEDS ORDERED: ADENOSINE STRESS TEST INJ 90 MG/30 ML VIAL ONE (08:04)
[2016-10-27] MEDS ORDERED: HEPARIN SODIUM - IV 10,000 UNITS/10 ML VIAL ONE (08:06)
[2016-10-27] MEDS ORDERED: STERILE WATER FOR INJECTION 10 ML VIAL ONE (08:18)
[2016-10-27] MEDS ORDERED: BIVALIRUDIN 250 MG VIAL ONE ×2 (08:18→08:42)
[2016-10-27] MEDS ORDERED: CLOPIDOGREL 300 MG TAB ONE (08:29)
[2016-10-27] MEDS ORDERED: BIVALIRUDIN INJ 250 MG in SODIUM CHLORIDE 0.9% INJ 50 ML IV SCH (08:41)
[2016-10-27] MEDS ORDERED: SODIUM CHLOR 0.9% 1000 ML INJ 1,000 ML IV SCH (08:41)
[2016-10-27] MEDS ORDERED: SODIUM CHLORIDE 0.9% FLUSH 5 ML FLUSH IVF PRN (08:45)
[2016-10-27] MEDS ORDERED: ACETAMINOPHEN 325 MG TAB PO PRN (08:45)
[2016-10-27] MEDS ORDERED: SODIUM CHLOR 0.9% 250 ML INJ 250 ML IV PRN (08:45)
[2016-10-27] MEDS ORDERED: oxyCODONE/ACETAMINOPHEN 5 MG/325 MG TAB PO PRN (08:45)
[2016-10-27] MEDS ORDERED: ATROPINE SULFATE 1 MG/ML VIAL IV PRN (08:45)
[2016-10-27] MEDS ORDERED: LORazepam 2 MG/ML VIAL IV PRN (08:45)
[2016-10-27] MEDS ORDERED: ONDANSETRON HCL 4 MG/2 ML VIAL IV PRN (08:45)
[2016-10-27] MEDS ORDERED: TEMAZEPAM 15 MG CAP PO PRN (08:45)
[2016-10-27] MEDS ORDERED: MISC INFORMATION XX ONE (08:45)
[2016-10-27] MEDS ORDERED: BACITRACIN OINT 0.9 GM PKT TOP ONE (08:45)
[2016-10-27] MEDS: SODIUM CHLORIDE 0.9% FLUSH 5 ML FLUSH IVF SCH ×2 (09:00→20:32)
[2016-10-27] MEDS: LISINOPRIL 5 MG TAB PO SCH (09:00)
[2016-10-27] MEDS ORDERED: ASPIRIN EC 81 MG TABEC PO SCH (09:00)
[2016-10-27] MEDS: CARVEDILOL 6.25 MG TAB PO SCH ×2 (09:00→20:32)
[2016-10-27] MEDS: MULTIVITAMIN HEMATINIC THERAPEUTIC TAB PO SCH (09:00)
[2016-10-27] MEDS: ASPIRIN 81 MG CHEW TAB PO SCH (09:00)
[2016-10-27] MEDS: CITALOPRAM HYDROBROMIDE 40 MG TAB PO SCH (09:00)
[2016-10-27] MEDS ORDERED: CLOPIDOGREL 75 MG TAB PO SCH (09:00)
[2016-10-27] MEDS ORDERED: IOHEXOL 350 MG/ML 100 ML BTL (for Cath Lab) OTHER ONE (09:45)
--- NOTE | 2016-10-27 10:52 | MA ---
cc: JEFE MONDRAGON M.D., BENJAMIN J. M.D. DATE: 10/27/2016 PROCEDURE PERFORMED Left heart catheterization, left ventriculography, coronary angiography, fractional flow reserve and stenting of the mid left anterior descending coronary artery, right femoral angiography. BRIEF HISTORY Michelle Ramírez is a 76-year-old man with known coronary artery disease, December 28, 2006, he had an acute anterior STEMI and had stenting of the proximal LAD with a 3.5 x 23 mm Cypher. November 26, 2011 he had stenting of the mid to distal LAD utilizing a 2.0 x 28 mm Vision stent and a 2.25 x 15 mm Vision stent. April 20, 2014 he had stent thrombosis and had re-stenting of the ostium and proximal LAD utilizing a 3.5 x 22 mm Resolute stent proximally and then a 2.25 x 26 mm Resolute stent in the mid vessel. His last nuclear stress test showed that the anterior defect on his heart was much larger than it was on his previous nuclear stress test but there was no evident ischemia. He recently had a shock from his defibrillator while performing mild exertion. The patient is known to have silent ischemia. He never had angina before any of his stent procedures. He has been on good antianginal therapy. Cardiac catheterization was recommended to assess ischemia. DESCRIPTION OF PROCEDURE The patient was brought to the cardiac microbiology lab assistant in a fasting state. Using 1% lidocaine for local anesthesia a 6-1/2 Vincentian sheath was inserted in the right femoral artery. The left ventricular pressure was then recorded using a pigtail catheter followed by left ventriculography and then a pullback. Coronary angiography was then performed using a left 5 Reyna for left coronary artery and a 3DRC for the right coronary artery. He had a hazy lesion in the mid-LAD with suspected 70% stenosis bypassing it, heparin was given IV, an XB 4.5 LAD guiding catheter was used to engage the left main. Fractional flow reserve was obtained of the LAD with a value of 0.79. I then stented the mid LAD utilizing a 3.5 x 15 mm Resolute stent. The lesion was difficult to cross and required somewhat deep seating of the guide, I was able to get successfully across and deployed the stent at a maximum of 12 atmospheres for 35 seconds. Angiography shows a nice step-up on both ends of the stent with no residual stenosis. The patient tolerated the procedure well. It was done using Angiomax infusion. Next I obtained angiography of the right femoral artery via the sheath. The sheath site is close to the bifurcation so we will pull the sheath manually. There were no complications. FINDINGS 1. Hemodynamics. Left ventricular pressure was 126 /12 with an end-diastolic pressure of 25. Aortic pressure is 131/56 with a mean of 86. There was no gradient during pullback from left ventricle to the aorta. 2. Left ventriculography. Left ventriculography shows anterolateral and apical akinesis. Estimated ejection fraction is between 30 and 35%, probably closer to 30%. 3. Coronary angiography. Left main coronary artery is fairly large with 20% mid stenosis. It bifurcates into the LAD and circumflex vessels. The LAD has widely patent proximal and mid to distal stents but in the gap between the stents there is a hazy area just before one of the diagonal branches with about 70% eccentric stenosis. Fractional flow reserve of this lesion was 0.79 and the circumflex artery has irregularities, the circumflex and obtuse marginal branch but no significant stenosis. The right coronary artery has a 40% eccentric stenosis proximally and mild irregularities throughout. 4. Results of stenting. Following stenting of the mid-LAD a 0% residual stenosis had been achieved. CONCLUSION 1. Elevated left ventricular end-diastolic pressure. 2. Moderate to severely impaired LV function. 3. Severe stenosis to the LAD with abnormal flow reserve by FFR. 4. Successful drug-eluting stent of the mid-LAD. He has no other lesions needing revascularized ___ is now completely revascularized. PLAN The patient received 300 mg Plavix load. He will have his sheath removed later today and he will be discharged home tomorrow if stable. MD REINA Stewart/ROBB /8:38 AM /10:35 AM
[2016-10-27 19:00] VITALS: PULSE 56
[2016-10-27 20:00] VITALS: BP 138/69; PULSE 52; PULSE 54; RESP 18; TEMP 98; O2SAT 96
[2016-10-27 21:00] VITALS: PULSE 51
[2016-10-27] MEDS ORDERED: ATORVASTATIN 40 MG TAB PO SCH (21:00)
[2016-10-27 22:00] VITALS: PULSE 58
--- NOTE | 2016-10-27 22:43 | EKG ---
Date Performed: 10/27/2016 Time Performed: 09:19:44 PTAGE: 76 years EKG: Sinus bradycardia Anteroseptal infarct - age undetermined Low QRS voltages in limb leads Ab normal ECG PREVIOUS TRACING : 10/27/2016 06.21 DOCTOR: Ifeoma Moran Interpretating Date/Time 10/27/2016 22:41:19
--- NOTE | 2016-10-27 22:47 | EKG ---
Date Performed: 10/27/2016 Time Performed: 06:21:14 PTAGE: 76 years EKG: Sinus bradycardia with borderline 1st degree A-V block Anteroseptal infarct - age undetermi tang Generalized low QRS voltages Abnormal ECG PREVIOUS TRACING : 10/15/2016 14.13 DOCTOR: Ifeoma Moran Interpretating Date/Time 10/27/2016 22:45:16
[2016-10-27 23:00] VITALS: PULSE 52
[2016-10-28] VITALS (11 sets, daily range): BP systolic 118–140; BP diastolic 59–75; PULSE 50–62; RESP 18; TEMP 98–98.2; O2SAT 96–98
[2016-10-28 05:33] LABS: AUTOMATED NEUTROPHIL # 6.5 TH/MM3 (1.8-7.7); BASOPHIL % 0.4 % (0.0-2.0); EOSINOPHIL # 0.4 TH/MM3 (0-0.4); EOSINOPHIL % 3.9 % (0.0-4.0); HEMATOCRIT 35.2 % (39.0-51.0); HEMO FLAGS DIFF FINAL; LYMPH % 20.2 % (9.0-44.0); MEAN CELL VOLUME 90.7 FL (80.0-100.0); MEAN CORPUSCULAR HEMOGLOBIN 31.3 PG (27.0-34.0); MEAN CORPUSCULAR HGB CONC 34.5 % (32.0-36.0); MONO % 8.8 % (0.0-8.0); NEUT % 66.7 % (16.0-70.0); PLATELET COUNT 171 TH/MM3 (150-450); RED BLOOD COUNT 3.88 MIL/MM3 (4.50-5.90); RED CELL DISTRIBUTION WIDTH 14.1 % (11.6-17.2); WHITE BLOOD COUNT 9.8 TH/MM3 (4.0-11.0)
[2016-10-28 06:13] LABS: BICARBONATE 27.3 MEQ/L (21.0-32.0); POTASSIUM 3.8 MEQ/L (3.5-5.1)
--- NOTE | 2016-10-28 08:34 | EKG ---
Date Performed: 10/28/2016 Time Performed: 05:49:18 PTAGE: 76 years EKG: SINUS BRADYCARDIA WITH MARKED SINUS ARRHYTHMIA LOW QRS VOLTAGE IN EXTREMITY LEADS ANTEROSEP LILIBETH MYOCARDIAL INFARCTION , PROBABLY RECENT NO PREVIOUS TRACING DOCTOR: Houston Clinton Interpretating Date/Time 10/28/2016 08:32:21
--- NOTE | 2016-10-28 08:46 | EKG ---
Date Performed: 10/27/2016 Time Performed: 17:08:48 PTAGE: 76 years EKG: Sinus bradycardia Anteroseptal infarct - age undetermined Low QRS voltages in limb leads Ab normal ECG PREVIOUS TRACING : 10/27/2016 09.19 DOCTOR: Houston Clinton Interpretating Date/Time 10/28/2016 08:42:23
[2016-10-28] MEDS: LISINOPRIL 5 MG TAB PO SCH (08:57)
[2016-10-28] MEDS: CITALOPRAM HYDROBROMIDE 40 MG TAB PO SCH (08:57)
[2016-10-28] MEDS: ASPIRIN 81 MG CHEW TAB PO SCH (08:57)
[2016-10-28] MEDS: MULTIVITAMIN HEMATINIC THERAPEUTIC TAB PO SCH (09:00)
[2016-10-28] MEDS ORDERED: CLOPIDOGREL 75 MG TAB PO SCH (09:00)
[2016-10-28] MEDS: SODIUM CHLORIDE 0.9% FLUSH 5 ML FLUSH IVF SCH (09:01)
--- NOTE | 2016-10-28 09:39 | PD.CARD.PN ---
Subjective Subjective Remarks no complaints Objective Medications Current Medications Medications (Trade) Dose Ordered Sig/Mack Route Start Time Stop Time Status Last Admin (NS 1000 ml Inj) 1,000 ml @ 30 mls/hr Q24H IV 10/27/16 06:00 (NS Flush) 2 ml UNSCH PRN IVF 10/27/16 08:45 (NS Flush) 2 ml BID IVF 10/27/16 09:00 10/28/16 09:01 (Tylenol) 325 mg Q4H PRN PO 10/27/16 08:45 (Percocet 5-325 Mg) 1 tab Q4H PRN PO 10/27/16 08:45 (Restoril) 15 mg HS PRN PO 10/27/16 08:45 (Aspirin Chew) 81 mg DAILY PO 10/27/16 09:00 10/28/16 08:57 (Plavix) 75 mg DAILY PO 10/28/16 09:00 10/28/16 08:58 (Atropine Inj) 0.5 mg UNSCH PRN IV 10/27/16 08:45 (Zofran Inj) 4 mg Q4H PRN IV 10/27/16 08:45 (Lipitor) 40 mg HS PO 10/27/16 21:00 10/27/16 20:32 (Coreg) 6.25 mg BID PO 10/27/16 09:00 10/27/16 20:32 (CeleXA) 40 mg DAILY PO 10/27/16 09:00 10/28/16 08:57 (Prinivil) 5 mg DAILY PO 10/27/16 09:00 10/28/16 08:57 (Theragran Hematinic) 1 tab DAILY PO 10/27/16 09:00 Vital Signs / I&O Vital Signs Date Time Temp Pulse Resp B/P Pulse Ox O2 Delivery O2 Flow Rate FiO2 10/28/16 06:00 60 10/28/16 05:00 54 10/28/16 04:00 98.0 54 18 124/62 98 10/28/16 04:00 55 10/28/16 03:00 62 10/28/16 02:00 55 10/28/16 01:00 55 10/28/16 00:00 98.0 55 18 118/59 98 10/28/16 00:00 54 10/27/16 23:00 52 10/27/16 22:00 58 10/27/16 21:00 51 10/27/16 20:00 54 10/27/16 20:00 98.0 52 18 138/69 96 10/27/16 19:00 56 I/O 10/27/16 10/27/16 10/27/16 10/28/16 10/28/16 10/28/16 07:00 15:00 23:00 07:00 15:00 23:00 Intake Total 240 ml 240 ml Output Total 1200 ml 300 ml Balance -960 ml -60 ml Intake Oral 240 ml 240 ml Output Urine Total 1200 ml 300 ml # Bowel Movements 1 1 Physical Exam GENERAL: Well developed, well nourished. No acute distress. HEENT: Jugular venous pressure is normal. CHEST: Lungs clear to auscultation bilaterally. Unlabored respiratory effort. CARDIAC: Regular rate and rhythm without S3, S4, or murmur. ABDOMEN: Soft, nontender, no hepatosplenomegaly. Bowel sounds present. EXTREMITIES: No clubbing, cyanosis, or edema. Laboratory Laboratory Tests Test 10/28/16 04:48 White Blood Count 9.8 TH/MM3 Red Blood Count 3.88 MIL/MM3 Hemoglobin 12.2 GM/DL Hematocrit 35.2 % Mean Corpuscular Volume 90.7 FL Mean Corpuscular Hemoglobin 31.3 PG Mean Corpuscular Hemoglobin 34.5 % Concent Red Cell Distribution Width 14.1 % Platelet Count 171 TH/MM3 Mean Platelet Volume 9.5 FL Neutrophils (%) (Auto) 66.7 % Lymphocytes (%) (Auto) 20.2 % Monocytes (%) (Auto) 8.8 % Eosinophils (%) (Auto) 3.9 % Basophils (%) (Auto) 0.4 % Neutrophils # (Auto) 6.5 TH/MM3 Lymphocytes # (Auto) 2.0 TH/MM3 Monocytes # (Auto) 0.9 TH/MM3 Eosinophils # (Auto) 0.4 TH/MM3 Basophils # (Auto) 0.0 TH/MM3 CBC Comment DIFF FINAL Differential Comment Sodium Level 141 MEQ/L Potassium Level 3.8 MEQ/L Chloride Level 106 MEQ/L Carbon Dioxide Level 27.3 MEQ/L Anion Gap 8 MEQ/L Blood Urea Nitrogen 14 MG/DL Creatinine 0.87 MG/DL Estimat Glomerular Filtration 85 ML/MIN Rate Random Glucose 95 MG/DL Calcium Level 8.1 MG/DL Total Creatine Kinase 60 U/L Assessment and Plan Problem List: (1) CAD (coronary artery disease) Assessment and Plan: stable (2) Ventricular tachycardia Assessment and Plan: Hopefully resolving LAD stenosis will help (3) Cardiomyopathy Assessment and Plan: EF 30% (4) Stented coronary artery Assessment and Plan: Cont ASA and clopidogrel. Discharge Home. Cardiac diet. F/ U OV 2 weeks Anoop Rahman MD Oct 28, 2016 09:39
[2016-10-28] MEDS ORDERED: CARVEDILOL 3.125 MG TAB PO SCH ×2 (10:10→21:00)
== END 2016-10-28 11:30 | disposition home or self-care (01) ==
LOC: HDOC 05:05 → HDIC 05:27 → HCPC 19:03 → HDOC 10-28 11:30
PROVIDERS: ATTEND Internal Medicine Cardiovascular Disease
DX: I25.10 Atherosclerotic heart disease of native coronary artery without angina pectoris (principal); I47.2 Ventricular tachycardia; I25.5 Ischemic cardiomyopathy; I10 Essential (primary) hypertension; I25.2 Old myocardial infarction; E78.00 Pure hypercholesterolemia, unspecified; Z79.82 Long term (current) use of aspirin; Z95.5 Presence of coronary angioplasty implant and graft; Z79.01 Long term (current) use of anticoagulants
CPT/HCPCS: 80048; 82550; 85025; 85610; 85730; 92928; 93005; 93458; 93571; C1769; C1874; C1887; C1893; J0153; J0583; J1644; J2250; Q9967